=== PATIENT | female | born 2000 | race Caucasian/White ===

== ENCOUNTER 2022-08-08 15:02 | Outpatient (RCR) | payer OTHER ==
[~2022-08-08 15:02] MED LIST: ZOFRAN ODT4 MG PO
== END 2022-08-10 | disposition home or self-care (01) ==
LOC: WSOH
DX: F07.81 Postconcussional syndrome (principal); F90.9 Attention-deficit hyperactivity disorder, unspecified type; Y99.0 Civilian activity done for income or pay

== ENCOUNTER 2022-08-23 14:03 | Outpatient (RCR) | payer OTHER | END 2022-09-09 | disposition home or self-care (01) | LOC: WSOH | DX: F07.81 Postconcussional syndrome (principal); F90.9 Attention-deficit hyperactivity disorder, unspecified type; Y99.0 Civilian activity done for income or pay ==